=== PATIENT | male | born 1965 | race Caucasian/White ===

== ENCOUNTER 2017-10-12 19:36 | Emergency (ER) | payer MEDICAID ==
[~2017-10-12] VITALS: Ht 180.3 cm; Wt 83.0 kg
[~2017-10-12 19:36] MED LIST: CARI350T27 PO; HYDR-4001 PO
[2017-10-12 19:55] VITALS: BP 125/62
[2017-10-12] MEDS ORDERED: ACETAMINOPHEN 500MG TABLET PO ONE (21:30)
[2017-10-12] MEDS ORDERED: TETANUS, DIPHTHERIA, PERTUSSIS VAC/PF 0.5ML (>7YR OLD) IM ONE (22:45)
== END 2017-10-12 22:51 | disposition home or self-care (01) ==
LOC: ER 20:24
DX: S61.303A Unspecified open wound of left middle finger with damage to nail, initial encounter (principal); X58.XXXA Exposure to other specified factors, initial encounter; Y93.89 Activity, other specified; Y99.8 Other external cause status; Y92.89 Other specified places as the place of occurrence of the external cause
CPT/HCPCS: 73140; 90471; 90715; 99284; X7700; Z7610

== ENCOUNTER 2018-02-17 17:15 | Emergency (ER) | payer MEDICAID ==
[~2018-02-17] VITALS: Ht 162.6 cm; Wt 89.0 kg
[2018-02-17] MEDS ORDERED: FLUORESCEIN SODIUM 1MG/STRIP BOTHEYE ONE (22:00)
[2018-02-17] MEDS ORDERED: IBUPROFEN 600MG TABLET PO ONE (22:00)
[2018-02-17] MEDS ORDERED: TETRACAINE 0.5% OPHTH DROPS 4ML BOTHEYE ONE (22:00)
[2018-02-17] MEDS ORDERED: FLUORESCEIN SODIUM 1MG/STRIP BOTHEYE NR (22:08)
[2018-02-17] MEDS ORDERED: TETRACAINE 0.5% OPHTH DROPS 4ML BOTHEYE NR (22:08)
[2018-02-17 23:39] VITALS: BP 119/69
== END 2018-02-17 23:41 | disposition home or self-care (01) ==
LOC: ER 17:15
DX: S06.899A Other specified intracranial injury with loss of consciousness of unspecified duration, initial encounter (principal); R51 Headache; R42 Dizziness and giddiness; H53.8 Other visual disturbances; W22.8XXA Striking against or struck by other objects, initial encounter; Y93.89 Activity, other specified; Y92.89 Other specified places as the place of occurrence of the external cause
CPT/HCPCS: 70450; 99284

== ENCOUNTER 2018-09-03 22:04 | Emergency (ER) | payer MEDICAID ==
[~2018-09-03] VITALS: Ht 167.6 cm; Wt 90.1 kg
[2018-09-03] MEDS ORDERED: HYDROCODONE/ACETAMINOPHEN 5/325MG TABLET PO ONE (23:15)
[2018-09-04] MEDS ORDERED: IBUPROFEN 600MG TABLET PO ONE (00:15)
[2018-09-04 00:44] VITALS: BP 113/65
== END 2018-09-04 00:45 | disposition home or self-care (01) ==
LOC: ER 22:24
DX: L76.22 Postprocedural hemorrhage of skin and subcutaneous tissue following other procedure (principal); Y84.8 Other medical procedures as the cause of abnormal reaction of the patient, or of later complication, without mention of misadventure at the time of the procedure; Y92.89 Other specified places as the place of occurrence of the external cause
CPT/HCPCS: 99283; Z7610

== ENCOUNTER 2018-09-19 09:14 | Emergency (ER) | payer MEDICAID ==
[~2018-09-19] VITALS: Ht 172.7 cm; Wt 89.0 kg
[2018-09-19] MEDS ORDERED: tylenol (09:59)
[2018-09-19 13:31] LABS: CHLORIDE 105 mEq/L (98-107)
[2018-09-19 13:32] LABS: BASOPHILS % 0.3 % (0.0-2.0); EOSINOPHILS % 1.9 % (0.0-5.0); HEMATOCRIT. 46.1 % (42.0-52.0); LYMPHOCYTES % 35.5 % (20.0-50.0); MEAN CORPUSCULAR HEMOGLOBIN 31.2 pg (28.0-32.0); MEAN CORPUSCULAR VOLUME 90.1 fL (80.0-94.0); MEAN PLATELET VOLUME 8.2 fl (7.4-10.4); MONOCYTES % 5.1 % (2.0-8.0); NEUTROPHILS % 57.2 % (40.0-76.0); PLATELET 219 x1000/uL (130-400); RED BLOOD CELL COUNT 5.11 mill/uL (4.7-6.1); RED CELL DISTRIBUTION WIDTH 12.2 % (11.6-14.6)
[2018-09-19] MEDS ORDERED: SULFAMETHOXAZOLE/TRIMETHOPRIM 800/160MG TABLET PO ONE (14:00)
[2018-09-19] MEDS ORDERED: CEPHALEXIN 250MG CAPSULE PO ONE (14:00)
[2018-09-19] MEDS ORDERED: HYDROCODONE/ACETAMINOPHEN 5/325MG TABLET PO ONE (14:00)
[2018-09-19 14:45] VITALS: BP 138/76
== END 2018-09-19 13:00 | disposition home or self-care (01) ==
LOC: ER 09:14
DX: S61.303A Unspecified open wound of left middle finger with damage to nail, initial encounter (principal); R07.89 Other chest pain; W45.8XXA Other foreign body or object entering through skin, initial encounter; Y93.89 Activity, other specified; Y92.89 Other specified places as the place of occurrence of the external cause; Y99.8 Other external cause status
CPT/HCPCS: 29130; 36415; 71045; 73140; 83880; 84484; 93005; 99284

== ENCOUNTER 2021-05-18 18:25 | Emergency (ER) | payer MEDICAID ==
[~2021-05-18] VITALS: Ht 177.8 cm; Wt 80.0 kg
[~2021-05-18 18:25] MED LIST changes: -CARI350T27 PO; -HYDR-4001 PO; +tylenol
[2021-05-18] MEDS ORDERED: ACETAMINOPHEN 325MG TABLET PO ONE (22:45)
[2021-05-19] MEDS ORDERED: LIDOCAINE 5% PATCH TOP SCH
[2021-05-19] MEDS ORDERED: ACET-2708 MT (02:45)
[2021-05-19] MEDS ORDERED: BACL-141 MT (03:17)
[2021-05-19] MEDS ORDERED: LIDO700A15 TP (03:17)
[2021-05-19 03:57] VITALS: BP 130/78
== END 2021-05-19 03:59 | disposition home or self-care (01) ==
LOC: ER 18:25
DX: S13.4XXA Sprain of ligaments of cervical spine, initial encounter (principal); S09.90XA Unspecified injury of head, initial encounter; I49.9 Cardiac arrhythmia, unspecified; Z98.890 Other specified postprocedural states; W18.30XA Fall on same level, unspecified, initial encounter; Y93.89 Activity, other specified; Y92.89 Other specified places as the place of occurrence of the external cause; Y99.8 Other external cause status
CPT/HCPCS: 93005; 99285

== ENCOUNTER 2022-02-09 12:45 | Inpatient (IN) | payer MEDICAID ==
[~2022-02-09] VITALS: Ht 172.7 cm; Wt 84.9 kg
[~2022-02-09 12:45] MED LIST changes: +ACET-2708 MT; +BACL-141 MT; +LIDO700A15 TP
[2022-02-09] MEDS ORDERED: SODIUM CHLORIDE 0.9% 1,000 ML IV ONE (13:45)
[2022-02-09 14:08] LABS: BASOPHILS % 0.2 % (0.0-2.0); EOSINOPHILS % 1.7 % (0.0-5.0); HEMATOCRIT. 42.7 % (42.0-52.0); HEMOGLOBIN. 14.9 g/dL (14.0-18.0); LYMPHOCYTES % 31.6 % (20.0-50.0); MEAN CORPUSCULAR HEMOGLOBIN 31.5 pg (28.0-32.0); MEAN CORPUSCULAR VOLUME 90.4 fL (80.0-94.0); MEAN PLATELET VOLUME 8.7 fl (7.4-10.4); MONOCYTES % 5.4 % (2.0-8.0); NEUTROPHILS % 61.1 % (40.0-76.0); PLATELET 227 x1000/uL (130-400); RED BLOOD CELL COUNT 4.72 mill/uL (4.7-6.1); RED CELL DISTRIBUTION WIDTH 12.2 % (11.6-14.6)
[2022-02-09 14:14] LABS: CHLORIDE 111 mEq/L (98-107)
[2022-02-09] MEDS ORDERED: ASPIRIN 325MG EC TABLET PO NR (16:04)
[2022-02-09] MEDS ORDERED: IPRATROPIUM/ALBUTEROL 0.5-3(2.5)MG/3ML NEB HHN PRN (18:45)
[2022-02-09] MEDS ORDERED: DIPHENHYDRAMINE 50MG/ML VIAL IV PRN (18:45)
[2022-02-09] MEDS ORDERED: ONDANSETRON HCL 4MG/2ML INJ IV PRN (18:45)
[2022-02-09] MEDS ORDERED: CLONIDINE 0.1MG TABLET PO PRN (18:45)
[2022-02-09] MEDS ORDERED: ACETAMINOPHEN 325MG TABLET PO PRN (18:45)
[2022-02-09] MEDS ORDERED: ENOXAPARIN 40MG/0.4ML SYR SUBCUT SCH (19:00)
[2022-02-10] VITALS (7 sets, daily range): BP systolic 100–129; BP diastolic 60–70
[2022-02-10 06:41] LABS: BASOPHILS % 0.3 % (0.0-2.0); EOSINOPHILS % 2.2 % (0.0-5.0); HEMATOCRIT. 39.9 % (42.0-52.0); HEMOGLOBIN. 14.2 g/dL (14.0-18.0); LYMPHOCYTES % 35.9 % (20.0-50.0); MEAN CORPUSCULAR HEMOGLOBIN 31.9 pg (28.0-32.0); MEAN CORPUSCULAR VOLUME 89.4 fL (80.0-94.0); MEAN PLATELET VOLUME 8.8 fl (7.4-10.4); NEUTROPHILS % 55.6 % (40.0-76.0); PLATELET 225 x1000/uL (130-400); RED BLOOD CELL COUNT 4.46 mill/uL (4.7-6.1); RED CELL DISTRIBUTION WIDTH 12.3 % (11.6-14.6)
[2022-02-10 06:51] LABS: CHLORIDE 108 mEq/L (98-107)
[2022-02-10] MEDS: ASPIRIN 81MG EC TABLET PO SCH (08:28)
[2022-02-10] MEDS: DILTIAZEM HCL 30MG TABLET PO SCH ×2 (13:16→21:06)
[2022-02-10] MEDS: ENOXAPARIN 40MG/0.4ML SYR SUBCUT SCH (13:47)
[2022-02-10] MEDS: DICLOFENAC SODIUM 1% GEL 50GM TOP SCH ×2 (16:43→20:58)
[2022-02-11 00:53] VITALS: BP 103/69
[2022-02-11 04:57] VITALS: BP 12/60
[2022-02-11] MEDS: DILTIAZEM HCL 30MG TABLET PO SCH (07:00)
[2022-02-11 08:00] VITALS: BP 109/64
[2022-02-11] MEDS: DICLOFENAC SODIUM 1% GEL 50GM TOP SCH (08:58)
[2022-02-11] MEDS: ASPIRIN 81MG EC TABLET PO SCH (08:58)
[2022-02-11] MEDS: ENOXAPARIN 40MG/0.4ML SYR SUBCUT SCH (08:58)
[2022-02-11] MEDS ORDERED: DILT30TA38 PO (11:59)
[2022-02-11] MEDS ORDERED: ASPI-1406 PO (11:59)
[2022-02-11 12:00] VITALS: BP 119/73
[2022-02-11 12:25] VITALS: BP 119/73
== END 2022-02-11 14:00 | disposition home or self-care (01) | DRG 137 ==
LOC: ER 12:45 → EDBEDREQTM 16:14 → 7EST 17:42 → EDBEDREQ 17:51 → EDBEDREQTM 19:27 → ENRESERV 20:06
PROVIDERS: ADMIT Internal Medicine; ATTEND Internal Medicine
DX: U07.1 COVID-19 (principal); J12.82 Pneumonia due to coronavirus disease 2019; I48.20 Chronic atrial fibrillation, unspecified; Z79.899 Other long term (current) drug therapy; Z87.828 Personal history of other (healed) physical injury and trauma; Z82.49 Family history of ischemic heart disease and other diseases of the circulatory system
CPT/HCPCS: 36415; 71045; 80053; 83880; 84484; 85025; 87426; 93005; 93970; 99291; C9803; J1650; J7030

== ENCOUNTER 2022-03-24 18:54 | Emergency (ER) | payer MEDICAID ==
[~2022-03-24] VITALS: Ht 172.7 cm; Wt 75.0 kg
[~2022-03-24 18:54] MED LIST changes: +ASPI-1406 PO; +DILT30TA38 PO; -tylenol
[2022-03-24 20:06] LABS: CHLORIDE 105 mEq/L (98-107)
[2022-03-24 20:07] LABS: BASOPHILS % 0.2 % (0.0-2.0); EOSINOPHILS % 1.8 % (0.0-5.0); HEMATOCRIT. 42.6 % (42.0-52.0); HEMOGLOBIN. 14.8 g/dL (14.0-18.0); LYMPHOCYTES % 34.3 % (20.0-50.0); MEAN CORPUSCULAR HEMOGLOBIN 31.4 pg (28.0-32.0); MEAN CORPUSCULAR VOLUME 90.6 fL (80.0-94.0); MEAN PLATELET VOLUME 8.8 fl (7.4-10.4); MONOCYTES % 5.8 % (2.0-8.0); NEUTROPHILS % 57.9 % (40.0-76.0); PLATELET 195 x1000/uL (130-400); RED CELL DISTRIBUTION WIDTH 12.4 % (11.6-14.6)
[2022-03-24 20:10] LABS: PROTHROMBIN TIME 10.8 sec (9.6-11.0)
[2022-03-24 21:45] VITALS: BP 116/80
== END 2022-03-24 21:35 | disposition home or self-care (01) ==
LOC: ER 18:54
DX: I48.91 Unspecified atrial fibrillation (principal); Z79.899 Other long term (current) drug therapy; M79.672 Pain in left foot
CPT/HCPCS: 36415; 71045; 80053; 83880; 84484; 85025; 93005; 99285

== ENCOUNTER 2024-08-26 16:10 | Emergency (ER) | payer MEDICAID ==
[~2024-08-26] VITALS: Ht 172.7 cm; Wt 97.9 kg
[~2024-08-26 16:10] MED LIST changes: +DILT30TA37 PO; -DILT30TA38 PO
[2024-08-26 16:24] VITALS: O2SAT 97
[2024-08-26] MEDS ORDERED: CARB15DR63 RIGHT EAR (18:02)
[2024-08-26] MEDS ORDERED: TOPUD MT (18:05)
[2024-08-26] MEDS: ACETAMINOPHEN 325MG TABLET PO ONE (18:52)
[2024-08-26 19:42] VITALS: BP 100/53; PULSE 93; RESP 18; TEMP 37.1; O2SAT 97
== END 2024-08-26 19:43 | disposition home or self-care (01) ==
LOC: ER 16:10
DX: H61.21 Impacted cerumen, right ear (principal); R51.9 Headache, unspecified; I48.91 Unspecified atrial fibrillation; Z79.01 Long term (current) use of anticoagulants; Z79.82 Long term (current) use of aspirin
CPT/HCPCS: 99284